=== PATIENT | female | born 1955 ===

== ENCOUNTER 2018-08-06 05:30 | Inpatient (IN) | payer OTHER ==
[~2018-08-06] VITALS: Ht 162.6 cm; Wt 147.0 kg
[~2018-08-06 05:30] MED LIST: AVAPRO150 MG PO; CLONAZEPAM0.5 MG PO; EFFEXOR XR75 MG PO; PRILOSEC OTC20 MG PO; SINGULAIR10 MG PO; ZOCOR40 MG PO
[2018-09-03] MEDS ORDERED: PREVACID30 MG PO (09:15)
== END 2018-09-03 11:30 | disposition home or self-care (01) | DRG 347 ==
LOC: CIR.AMB 05:30 → O/R 12:25 → SURG 12:25
PROVIDERS: Surgery
PROC: 0WQN0ZZ Repair Female Perineum, Open Approach (ICD-10-PCS; 2018-08-06)
PROC: 0DQR0ZZ Repair Anal Sphincter, Open Approach (ICD-10-PCS; principal; 2018-08-06 07:00)
PROC: 05H633Z Insertion of Infusion Device into Left Subclavian Vein, Percutaneous Approach (ICD-10-PCS; 2018-08-11)
PROC: 0J9B3ZX Drainage of Perineum Subcutaneous Tissue and Fascia, Percutaneous Approach, Diagnostic (ICD-10-PCS; 2018-08-11)
PROC: 0UJH7ZZ Inspection of Vagina and Cul-de-sac, Via Natural or Artificial Opening (ICD-10-PCS; 2018-08-11)
PROC: 0DJD7ZZ Inspection of Lower Intestinal Tract, Via Natural or Artificial Opening (ICD-10-PCS; 2018-08-11)
PROC: BT40ZZZ Ultrasonography of Bladder (ICD-10-PCS; 2018-08-12)
PROC: BW40ZZZ Ultrasonography of Abdomen (ICD-10-PCS; 2018-08-17)
PROC: 3E0436Z Introduction of Nutritional Substance into Central Vein, Percutaneous Approach (ICD-10-PCS; 2018-08-29)
PROC: 0FJD8ZZ Inspection of Pancreatic Duct, Via Natural or Artificial Opening Endoscopic (ICD-10-PCS; 2018-09-01)
DX: R15.9 Full incontinence of feces (principal); K85.80 Other acute pancreatitis without necrosis or infection; N17.8 Other acute kidney failure; K81.0 Acute cholecystitis; B37.0 Candidal stomatitis; L02.215 Cutaneous abscess of perineum; T81.42XA Infection following a procedure, deep incisional surgical site, initial encounter; B37.49 Other urogenital candidiasis; K52.89 Other specified noninfective gastroenteritis and colitis; B95.2 Enterococcus as the cause of diseases classified elsewhere; B96.89 Other specified bacterial agents as the cause of diseases classified elsewhere; K76.0 Fatty (change of) liver, not elsewhere classified; E78.00 Pure hypercholesterolemia, unspecified; I10 Essential (primary) hypertension; D64.89 Other specified anemias; E11.65 Type 2 diabetes mellitus with hyperglycemia; E87.6 Hypokalemia; N28.1 Cyst of kidney, acquired; K76.89 Other specified diseases of liver; K29.60 Other gastritis without bleeding; K29.80 Duodenitis without bleeding; K57.30 Diverticulosis of large intestine without perforation or abscess without bleeding; K21.9 Gastro-esophageal reflux disease without esophagitis; Y83.8 Other surgical procedures as the cause of abnormal reaction of the patient, or of later complication, without mention of misadventure at the time of the procedure; Y92.098 Other place in other non-institutional residence as the place of occurrence of the external cause; Z79.4 Long term (current) use of insulin; Z86.010 Personal history of colon polyps